=== PATIENT | female | born 1990 | race Two or more races ===

== ENCOUNTER 2018-09-07 12:55 | Emergency (ER) | payer SELFPAY ==
[~2018-09-07] VITALS: Ht 172.7 cm; Wt 75.3 kg
[2018-09-07 12:58] VITALS: Ht 172.7 cm; Wt 75.3 kg
[2018-09-07 14:42] VITALS: BP 116/71
== END 2018-09-07 14:42 | disposition home or self-care (01) ==
LOC: ED 12:55
DX: H61.22 Impacted cerumen, left ear (principal); J32.9 Chronic sinusitis, unspecified